=== PATIENT | female | born 1975 | race Caucasian/White ===

== ENCOUNTER 2017-05-01 12:46 | Outpatient (CLI) | payer BC | END 2017-05-01 12:47 | disposition home or self-care (01) | LOC: ULT 12:46 | PROVIDERS: ATTEND Internal Medicine Hematology & Oncology | DX: Z51.11 Encounter for antineoplastic chemotherapy (principal); C50.311 Malignant neoplasm of lower-inner quadrant of right female breast; Z79.899 Other long term (current) drug therapy | CPT/HCPCS: 93306 ==

== ENCOUNTER 2017-08-15 14:47 | Outpatient (CLI) | payer BC | END 2017-08-15 14:48 | disposition home or self-care (01) | LOC: ULT 14:47 | PROVIDERS: ATTEND Internal Medicine Hematology & Oncology | DX: Z51.11 Encounter for antineoplastic chemotherapy (principal); C50.311 Malignant neoplasm of lower-inner quadrant of right female breast; Z79.899 Other long term (current) drug therapy; I08.1 Rheumatic disorders of both mitral and tricuspid valves; I51.7 Cardiomegaly | CPT/HCPCS: 93306 ==